=== PATIENT | female | born 1995 | race African-American/Black ===

== ENCOUNTER 2018-05-03 19:29 | Emergency (ER) | payer OTHER ==
[2018-05-03 19:36] VITALS: BP 117/71; PULSE 87; TEMP 98.1; BMI 31.2
--- NOTE | 2018-05-03 20:38 | PDOC ---
History of Present Illness - General History Source: Patient, Old Records Exam Limitations: No Limitations - History of Present Illness Initial Comments: 05/03/18 20:38 The patient is a 23 year old female, with a significant past medical history of asthma, migraine, depression and anxiety, who presents to the ED complaining of a tampon stuck in her vagina. She notes that she put a tampon in earlier today and took a nap. She notes that when she awoke she felt that she was still bleeding from her menstrual cycle. At the time she did not remember if she input a tampon and then put in a second. She reports that she took out the second tampon and decided to come to the ED as she is experiencing some abdominal discomfort. She notes that this is the first time that this has happened to her. She reports that she does not take any medications for her depression or anxiety. The patient denies chest pain, shortness of breath, headache and dizziness. Denies fever, chills, nausea, vomiting, diarrhea or constipation. Denies dysuria , frequency, urgency. LMP: 05/03/2018 (Usually regular, lasting 4 days) Allergies: Aspirin, cortisone, ibuprofen, maxifloxacin, Past surgical history: None reported Social History: No alcohol, tobacco or drug use reported <Palomo Parnell - Last Filed: 05/03/18 20:38> <Bree Carmichael - Last Filed: 05/04/18 02:39> - General Chief Complaint: Pain Stated Complaint: TAMPON STUCK INSIDE Time Seen by Provider: 05/03/18 19:34 Past History <Palomo Parnell - Last Filed: 05/03/18 20:38> - Past Medical History Asthma: Yes COPD: No - Immunization History Immunization Up to Date: Yes (LIVING IN [facility] UNTIL 2009) - Suicide/Smoking/Psychosocial Hx Smoking Status: No Smoking History: Never smoked Have you smoked in the past 12 months: No Number of Cigarettes Smoked Daily: 0 Information on smoking cessation initiated: No Hx Alcohol Use: Yes (OCCAS.) Drug/Substance Use Hx: Yes (MARIJUANA) Substance Use Type: Marijuana <Bree Carmichael - Last Filed: 05/04/18 02:39> - Past Medical History Allergies/Adverse Reactions: Allergies Allergy/AdvReac Type Severity Reaction Status Date / Time aspirin Allergy Verified 05/03/18 19:32 cortisone [Cortisone] Allergy Verified 05/03/18 19:32 moxifloxacin [From Avelox] Allergy Verified 05/03/18 19:32 Home Medications: Ambulatory Orders NK [No Known Home Medication] 05/03/18 Review of Systems - Review of Systems Able to Perform ROS?: Yes Comments:: 05/03/18 20:39 GENERAL/CONSTITUTIONAL: No fever or chills. No weakness. HEAD, EYES, EARS, NOSE AND THROAT: No change in vision. No ear pain or discharge. No sore throat. GASTROINTESTINAL: (+) Abdominal discomfort. No nausea, vomiting, diarrhea or constipation. GENITOURINARY: No dysuria, frequency, or change in urination. CARDIOVASCULAR: No chest pain or shortness of breath. RESPIRATORY: No cough, wheezing, or hemoptysis. MUSCULOSKELETAL: No joint or muscle swelling or pain. No neck or back pain. SKIN: No rash NEUROLOGIC: No headache, vertigo, loss of consciousness, or change in strength/ sensation. ENDOCRINE: No increased thirst. No abnormal weight change. HEMATOLOGIC/LYMPHATIC: No anemia, easy bleeding, or history of blood clots. ALLERGIC/IMMUNOLOGIC: No hives or skin allergy. <Palomo Parnell - Last Filed: 05/03/18 20:38> *Physical Exam - Vital Signs Last Vital Signs Temp Pulse Resp BP Pulse Ox 98.1 F 87 16 117/71 100 05/03/18 19:33 05/03/18 19:33 05/03/18 19:33 05/03/18 19:33 05/03/18 19:33 - Physical Exam Comments: 05/03/18 20:39 Constitutional: Awake, alert, oriented. No acute distress. Head: Normocephalic. Atraumatic Eyes: PERRL. EOMI. Conjunctivae are not pale. ENT: Mucous membranes are moist and intact. Posterior pharynx without exudates or erythema. Uvula midline. Neck: Supple. Full ROM. No lymphadenopathy. Cardiovascular: Regular rate. Regular rhythm. S1, S2 regular. Distal pulses are 2+ and symmetric. Pulmonary/Chest: No evidence of respiratory distress. Clear to auscultation bilaterally No wheezing, rales or rhonchi. Abdominal: (+) Minimal Suprapubic RLQ tenderness to palpation. Soft and non- distended. No rebound, guarding or rigidity. No organomegaly. No palpable masses. Good bowel sounds. Back: No CVA tenderness. Musculoskeletal: No edema. No cyanosis. No clubbing. Full range of motion in all extremities. Nocalf tenderness. Radial/pedal pulses are intact and 2+ bilaterally Skin: Skin is warm and dry. No petechiae. No purpura. Neurological: Alert and oriented to person, place, and time. Cranial nerves II -XII are grossly intact. Normal speech. Strength is grossly symmetric. No sensory deficits. Psychiatric: Good eye contact. Normal interaction, affect and behavior. <Palomo Parnell - Last Filed: 05/03/18 20:38> - Vital Signs Last Vital Signs Temp Pulse Resp BP Pulse Ox 98.1 F 87 16 117/71 100 05/03/18 19:33 05/03/18 19:33 05/03/18 19:33 05/03/18 19:33 05/03/18 19:33 <Bree Carmichael - Last Filed: 05/04/18 02:39> Moderate Sedation - Procedure Monitoring Vital Signs: Procedure Monitoring Vital Signs Temperature 98.1 F 05/03/18 19:33 Pulse Rate 87 05/03/18 19:33 Respiratory Rate 16 05/03/18 19:33 Blood Pressure 117/71 05/03/18 19:33 O2 Sat by Pulse Oximetry (%) 100 05/03/18 19:33 <Palomo Parnell - Last Filed: 05/03/18 20:38> - Procedure Monitoring Vital Signs: Procedure Monitoring Vital Signs Temperature 98.1 F 05/03/18 19:33 Pulse Rate 87 05/03/18 19:33 Respiratory Rate 16 05/03/18 19:33 Blood Pressure 117/71 05/03/18 19:33 O2 Sat by Pulse Oximetry (%) 100 05/03/18 19:33 <Bree Carmichael - Last Filed: 05/04/18 02:39> Progress Note - Progress Note Progress Note: Documentation has been prepared under my direction and personally reviewed by me in its entirety. I attest that this documented accurately reflects all work, treatment, procedures and medical decision making performed by me. <Bree Carmichael - Last Filed: 05/04/18 02:39> Medical Decision Making - Medical Decision Making As noted above, this 23-year-old woman presents to the ER with possibility of the retained tampon in her vagina. Earlier today, she believes she placed a tampon prior to taking a nap. When she had noted bleeding when she awakened, she placed another tampon. The second tampon was removed, the patient could not remember if she had taken first out ; she now presents for evaluation and possible removal of foreign body. exam as noted. Pelvic exam performed: Normal external female genitalia; [id number] amount of liquid blood in vaginal vault. Blood removed using 2 x 2 gauze sponges; entire vaginal vault/cervix inspected without evidence of foreign body/tampon. No other abnormality/injury seen. Patient will be discharged with instructions to return if her abdominal discomfort worsens or she develops fever/vomiting <Bree Carmichael - Last Filed: 05/04/18 02:39> *DC/Admit/Observation/Transfer - Attestations Scribe Attestion: 05/03/18 20:39 Documentation prepared by Palomo Parnell, acting as medical laboratory manager for Bree Carmichael MD <Palomo Parnell - Last Filed: 05/03/18 20:38> <Bree Carmichael - Last Filed: 05/04/18 02:39> Diagnosis at time of Disposition: Abdominal discomfort - Discharge Dispostion Disposition: HOME Condition at time of disposition: Stable - Patient Instructions Printed Discharge Instructions: DI for Abdominal Pain-Adult Additional Instructions: return to ER if you have worsening abdominal pain/ fever /vomiting followup with your video recorder mechanic within 5 days
== END 2018-05-03 20:46 | disposition home or self-care (01) ==
LOC: FER 19:29
DX: R10.9 Unspecified abdominal pain (principal); J45.909 Unspecified asthma, uncomplicated
CPT/HCPCS: 99281-25

== ENCOUNTER 2018-12-23 14:56 | Emergency (ER) | payer OTHER ==
--- NOTE | 2018-12-23 15:25 | PDOC ---
History of Present Illness - General Chief Complaint: Pain Stated Complaint: RIGHT CHEST PAIN X 2 YEARS Time Seen by Provider: 12/23/18 15:17 History Source: Patient Exam Limitations: No Limitations - History of Present Illness Initial Comments: 12/23/18 15:20 23YOF with h/o asthma, migraine, prior ED visit for c/o palpitations, also with h/o depression and anxiety. She p/w right breast burning, pulling, nagging pain radiating to her arm which has been ongoing for the past couple of months but worse today. She notes she usually gets this sensation when she is on her menstrual period, but she decided to come into the ED today because she is having it while not on her LMP currently. Mother of breast cancer in 2009. She denies any nipple discharge, skin changes, fever, chills, night sweats, weight loss, etc. She does note that she is very anxious and has insomnia because of this issue. She requests breast US. Past History - Past Medical History Allergies/Adverse Reactions: Allergies Allergy/AdvReac Type Severity Reaction Status Date / Time cortisone [Cortisone] Allergy Verified 05/03/18 19:32 moxifloxacin [From Avelox] Allergy Verified 05/03/18 19:32 Home Medications: Ambulatory Orders NK [No Known Home Medication] 05/03/18 Asthma: Yes COPD: No - Immunization History Immunization Up to Date: Yes (LIVING IN [facility] UNTIL [facility]) - Suicide/Smoking/Psychosocial Hx Smoking Status: No Smoking History: Never smoked Have you smoked in the past 12 months: No Number of Cigarettes Smoked Daily: 0 Hx Alcohol Use: Yes (OCCAS.) Drug/Substance Use Hx: Yes (MARIJUANA) Substance Use Type: Marijuana Review of Systems - Review of Systems Able to Perform ROS?: Yes Comments:: 12/23/18 15:24 GEN: no fever, chills, malaise, generalized weakness, or weight change HEENT: no ear pain, sore throat, vision change, or eye pain CV: breast pain, no palpitations, lightheadedness, syncope, or edema RESP: no cough, wheezing, or SOB GI: no abdominal pain, nausea, vomiting, diarrhea, constipation, or white/black/ bloody stool : no dysuria, hematuria, incontinence, retention, bleeding, or discharge MSK: no neck/back pain, muscle weakness/pain, or joint swelling/pain NEURO: no headache, seizure, vertigo, numbness, tingling, or focal weakness PSYCH: no substance use, no behavior change SKIN: no jaundice, no rash ROS otherwise negative except as noted in HPI *Physical Exam - Vital Signs Initial Vital Signs Temp Pulse Resp BP Pulse Ox 98.6 F 74 16 110/70 100 12/23/18 14:58 12/23/18 14:58 12/23/18 14:58 12/23/18 14:58 12/23/18 14:58 - Physical Exam Comments: 12/23/18 15:25 GENERAL: well-appearing, A/Ox4, no distress, answers questions appropriately HEENT: PERRLA, EOMI, moist mucous membranes NECK/BACK: no midline ttp, no spinal stepoff or deformity, no hematoma, full ROM , neck supple CARDIOVASCULAR: regular rate/rhythm, normal S1S2, no MGR, strong peripheral pulses, capillary refill <2 seconds, extremities wwp, no edema LUNGS/RESPIRATORY: no respiratory distress, CTAB GI/ABDOMEN: symmetric [id number], normoactive BS, soft, no ttp, no midline pulsatile masses : no CVA tenderness EXTREMITIES: no muscle atrophy, no acute deformity SKIN: warm and dry, no pallor, no jaundice, no rash, no bruising, no skin breakdown, no cuts, no lesions NEUROLOGICAL: GCS 15, CN II-XII grossly intact, 5/5 strength proximally and distally, no facial droop Medical Decision Making - Medical Decision Making 12/23/18 15:26 Adult Pt p/w chest pain. Initial Vital Signs Temp Pulse Resp BP Pulse Ox 98.6 F 74 16 110/70 100 12/23/18 14:58 12/23/18 14:58 12/23/18 14:58 12/23/18 14:58 12/23/18 14:58 Exam: As noted in Physical Exam section. DDX IBNLT: most likely breast pain related to fibrocystic changes, change in level of support (bra), musculoskeletal, or soft tissue contusion, much less likely malignancy, ACS, pericarditis, PTX, PE, gastritis, PUD, pancreatitis, cholecystitis, cholangitis, colitis, PNA, pleurisy, pleuritis, etc. W/U ordered: None TX ordered: None Labs: Reassessment: Repeat VS: DISCHARGE The Pt is appropriate for discharge with close outpatient follow up. They are comfortable with this plan and will follow up with their primary care provider in 1-3 days. Referral information given for breast specialist and neurologist. Specific return precautions are discussed and they will come back to the ER if necessary. *DC/Admit/Observation/Transfer Diagnosis at time of Disposition: Breast pain - Discharge Dispostion Disposition: HOME Condition at time of disposition: Stable Decision to Admit order: No - Referrals Referrals: Cheryl Bloom [Primary Care Provider] - [facility] [Provider Group] Elvis Anton MD [Staff Physician] - Josse Goldstein MD [Staff Physician] - - Patient Instructions Printed Discharge Instructions: DI for Breast Pain (Mastalgia) Additional Instructions: You were seen in the ER for breast pain. We did a full history and physical exam and we did not find any signs of an emergency.After our assessment, we do not believe you are having a medical emergency at this time, and we believe you are safe to go home. We are very sorry that this has been going on for so long, and we highly encourage you to follow up with our breast specialist team so that you can talk with them about this issue. Take over the counter pain medications for your pain, as instructed on the medication label. Please follow up with your primary care provider in 1-3 days, and talk with her about this issue. Call their clinic as soon as possible, tell them you were seen in the ER , and tell them you need an appointment. If you have any new or worsening symptoms, especially nipple discharge, skin changes, fever, night sweats, swollen lymph nodes, weight loss, or other symptoms, please come back to the ER at any time (24 hours a day). If you are having severe or life threatening symptoms, or symptoms that make it unsafe to drive or have someone drive you, please call 911. - Post Discharge Activity
--- NOTE | 2018-12-23 15:37 | PDOC ---
Attending Attestation - Resident Resident Name: IsidroFern - ED Attending Attestation I have performed the following: I have examined & evaluated the patient, The case was reviewed & discussed with the resident, I agree w/resident's findings & plan, Exceptions are as noted - HPI HPI: 12/23/18 15:31 23y F presents with R sided chest pain that radiates down her R arm. Pt notes she has pain typically with her periods but now is having this pain outside of her period. pts mom of breast ca, and pt would like to have a breast ultrasound here. pt endorses sometimes her R arm is cooler and more swollen than her other arm. pt had mentioned these symptmos to her pmd and had a breast US ni the past that was negative, however now the symptoms are extending beyond her period twhich is concerning. No neck pain, fever/chills, sob, bryant, diaphorseis, numbess/tingling/weakness. Exam: Breast Exam: b/l breasts appear normal without obviuos masses, no signs of peu ' dorange, no discharge Neck: no cervical tenderness, no lymphadenopathy upper ext: no notable swelling, induration, television analyzer strength symmetric, sensation intact and symmetric will have pt fu with PMD no signs of neuro deficits or abnormalities appreicate - Physicial Exam PE: 12/23/18 16:40 see above - Medical Decision Making 12/23/18 16:40 see above
[2018-12-23 15:49] VITALS: BP 110/70; PULSE 74; TEMP 98.6; BMI 31.0
== END 2018-12-23 16:28 | disposition home or self-care (01) ==
LOC: FER 14:56
DX: N64.4 Mastodynia (principal); R00.2 Palpitations; F41.8 Other specified anxiety disorders; J45.909 Unspecified asthma, uncomplicated
CPT/HCPCS: 99282-25